=== PATIENT | male | born 1990 | race Caucasian/White ===

== ENCOUNTER 2018-06-10 07:13 | Emergency (ER) | payer OTHER ==
--- NOTE | 2018-06-10 08:42 | RADIOLOGY REPORT (SQ) ---
EXAM DESCRIPTION: SHOULDER RIGHT 2 OR MORE VIEWS COMPLETED DATE/TIME: 06/10/2018 8:23 am REASON FOR STUDY: pain COMPARISON: None. NUMBER OF VIEWS: Three views. TECHNIQUE: Internal rotation, external rotation, and Y view images acquired of the right shoulder. LIMITATIONS: None. FINDINGS: MINERALIZATION: Normal. BONES: No acute fracture or dislocation. No worrisome bone lesions. JOINTS: No dislocation. VISUALIZED LUNGS AND RIBS: No pneumothorax. No rib fracture. SOFT TISSUES: No radiopaque foreign body. OTHER: No other significant finding. IMPRESSION: No fracture or dislocation of the right shoulder. Joint spaces are well preserved. TECHNICAL DOCUMENTATION: JOB ID: [id number] [employer]- All Rights Reserved Reading location - IP/workstation name: [email or web address]
--- NOTE | 2018-06-10 08:52 | ER Document Report ---
ED General - General Chief Complaint: Shoulder Pain Stated Complaint: SHOULDER PAIN Time Seen by Provider: 06/10/18 07:44 Primary Care Provider: PERI KOCH MD [ACTIVE STAFF] - Follow up as needed (call today for appointment) TRAVEL OUTSIDE OF THE [place] IN LAST 30 DAYS: No - HPI Patient complains to provider of: Right shoulder pain Notes: Patient coming in for evaluation of right shoulder pain ongoing for approximately 1 week. Patient denies any specific injury to the right shoulder. Patient states his difficulty lifting his arm up away from his body. Patient denies fever chills nausea vomiting diarrhea denies any surgical past history. Patient denies any numbness or tingling. - Related Data Allergies/Adverse Reactions: amoxicillin Allergy (Mild, Verified 06/10/18 07:50) Generalized rash Past Medical History - Social History Smoking Status: Current Some Day Smoker Family History: Reviewed & Not Pertinent Patient has suicidal ideation: No Patient has homicidal ideation: No Pulmonary Medical History: Denies: Hx Asthma Renal/ Medical History: Denies: Hx Peritoneal Dialysis Psychiatric Medical History: Reports: Hx Anxiety Review of Systems - Review of Systems Constitutional: No symptoms reported EENT: No symptoms reported Cardiovascular: No symptoms reported Respiratory: No symptoms reported Gastrointestinal: No symptoms reported Genitourinary: No symptoms reported Male Genitourinary: No symptoms reported Musculoskeletal: Other - Right shoulder pain Skin: No symptoms reported Hematologic/Lymphatic: No symptoms reported Neurological/Psychological: No symptoms reported -: Yes All other systems reviewed and negative Physical Exam - Vital signs Vitals: Temp Pulse Resp BP Pulse Ox 98.1 F 50 L 14 135/61 H 100 06/10/18 07:18 06/10/18 07:18 06/10/18 07:18 06/10/18 07:18 06/10/18 07:18 Interpretation: Normal - General General appearance: Appears well, Alert - HEENT Head: Normocephalic, Atraumatic Eyes: Normal Pupils: PERRL - Respiratory Respiratory status: No respiratory distress Chest status: Nontender Breath sounds: Normal Chest palpation: Normal - Cardiovascular Rhythm: Regular Heart sounds: Normal auscultation Murmur: No - Abdominal Inspection: Normal Distension: No distension Bowel sounds: Normal Tenderness: Nontender Organomegaly: No organomegaly - Back Back: Normal, Nontender - Extremities General upper extremity: Normal color, Normal temperature, Other - Left arm unaffected. Patient with tenderness to palpation of the dorsum of the deltoid muscle along the rotator cuff patient tenderness to palpation along the supraspinatus area of the shoulder as well no tenderness to the acromium or AC joint no tenderness to the clavicle decreased range of motion due to pain patient has decreased ability to AB duct his arm above 90 degrees patient has painful range of motion this is performed passively General lower extremity: Normal inspection, Nontender, Normal color, Normal ROM, Normal temperature, Normal weight bearing. No: Sathya's sign - Neurological Neuro grossly intact: Yes Cognition: Normal Orientation: AAOx4 [place] Coma Scale Eye Opening: Spontaneous Harjeet Coma Scale Verbal: Oriented [place] Coma Scale Motor: Obeys Commands [place] Coma Scale Total: 15 Speech: Normal Motor strength normal: LUE, RUE, LLE, RLE Sensory: Normal - Psychological Associated symptoms: Normal affect, Normal mood - Skin Skin Temperature: Warm Skin Moisture: Dry Skin Color: Normal Course - Re-evaluation Re-evalutation: 06/10/18 14:01 X-rays negative no clear etiology more likely soft tissue injury recommend patient follow-up orthopedics for possible MRI at this time patient will be given pain medication and referral information. - Vital Signs Vital signs: Temp Pulse Resp BP Pulse Ox 97.7 F 51 L 16 124/84 100 06/10/18 09:16 06/10/18 09:16 06/10/18 09:16 06/10/18 09:16 06/10/18 09:16 Discharge - Discharge Clinical Impression: Shoulder pain Qualifiers: Chronicity: acute Laterality: right Qualified Code(s): M25.511 - Pain in right shoulder Condition: Good Disposition: HOME, SELF-CARE Instructions: Ice Massage ([facility]), Exercise Program for the Shoulder ([facility]), Shoulder Injury ([facility]), Warm Packs ([facility]) Additional Instructions: Your x-ray does not show any signs of fracture subluxation or dislocation of your shoulder. Do believe your shoulder injury is due from a ligamentous or soft tissue injury. To confirm that she will need an MRI. MRI will need to be performed as outpatient. I recommend she follow-up with your primary care provider please take the pain medication as prescribed for severe pain Ultram. Would recommend Tylenol Motrin for your pain. He may continue with ice packs warm packs to help out with pain control. Prescriptions: Ibuprofen [Motrin 600 mg Tablet] 600 mg PO Q8HP PRN #21 tablet PRN Reason: Tramadol HCl [Ultram 50 mg Tablet] 50 mg PO ASDIR PRN #20 tablet PRN Reason: Forms: Return to Work Referrals: PERI KOCH MD [ACTIVE STAFF] - Follow up as needed (call today for appointment)
[2018-06-10] MEDS ORDERED: TRAMADOL HCL 50 MG TABLET PO ONE (08:57)
[2018-06-10 09:17] VITALS: BP 124/84
== END 2018-06-10 09:18 | disposition home or self-care (01) ==
LOC: ER 07:13
DX: M25.511 Pain in right shoulder (principal); F17.200 Nicotine dependence, unspecified, uncomplicated; Z88.0 Allergy status to penicillin
CPT/HCPCS: 99283

== ENCOUNTER 2019-01-02 00:22 | Emergency (ER) | payer OTHER ==
[2019-01-02] MEDS ORDERED: LIDOCAINE 0.5%/EPINEPHRINE INJ 50 ML VIAL INJ ONE (01:06)
[2019-01-02] MEDS ORDERED: DIPH/PERTUSS(ACELL)/TETANUS VAC/PF 0.5 ML SYR (>=10YO) IM ONE (01:06)
--- NOTE | 2019-01-02 01:33 | RADIOLOGY REPORT (SQ) ---
EXAM DESCRIPTION: XR HAND 3 OR MORE VIEWS COMPLETED DATE/TME: 01/02/2019 00:00 CLINICAL HISTORY: 28 years ,Male punched a wall; pain COMPARISON: None. TECHNIQUE: RIGHT hand, Three view FINDINGS: No acute fractures or dislocations are identified. No osseous destructive lesions. No radiopaque foreign object noted. IMPRESSION: No acute fracture or dislocation is identified.
--- NOTE | 2019-01-02 02:14 | ER Document Report ---
ED Hand/Wrist Injury - General Chief Complaint: Hand Injury Stated Complaint: RIGHT HAND INJURY Time Seen by Provider: 01/02/19 01:04 Primary Care Provider: BEL,CHAZ [Primary Care Provider] - Follow up as needed Notes: Patient is a otherwise healthy 28-year-old male presents to the emergency department after punching a tub with his right hand. States he was angry after an argument with a friend. Is denying any suicidal homicidal ideations. He sustained a laceration to the right hand. Patient is unsure when his last tetanus immunization was. Patient is declining any pain medication at this time. TRAVEL OUTSIDE OF THE [place] IN LAST 30 DAYS: No - Related Data Allergies/Adverse Reactions: amoxicillin Allergy (Mild, Verified 06/10/18 07:50) Generalized rash Home Medications: Sarms Past Medical History - General Information source: Patient - Social History Smoking Status: Current Every Day Smoker Chew tobacco use (# tins/day): No Frequency of alcohol use: Occasional Drug Abuse: None Family History: Reviewed & Not Pertinent Patient has suicidal ideation: No Patient has homicidal ideation: No Pulmonary Medical History: Denies: Hx Asthma Renal/ Medical History: Denies: Hx Peritoneal Dialysis Psychiatric Medical History: Reports: Hx Anxiety Review of Systems - Review of Systems Constitutional: denies: No symptoms reported EENT: No symptoms reported Cardiovascular: No symptoms reported Respiratory: No symptoms reported Gastrointestinal: No symptoms reported Genitourinary: No symptoms reported Male Genitourinary: No symptoms reported Musculoskeletal: See HPI Skin: See HPI Hematologic/Lymphatic: No symptoms reported Neurological/Psychological: No symptoms reported Physical Exam - Vital signs Vitals: Temp Pulse Resp BP Pulse Ox 97.9 F 55 L 18 123/79 99 01/02/19 00:27 01/02/19 00:27 01/02/19 00:27 01/02/19 00:27 01/02/19 00:27 - Notes Notes: GENERAL: Alert, interacts well. No acute distress. HEAD: Normocephalic, atraumatic. EYES: Pupils equal, round, and reactive to light. Extraocular movements intact. ENT: Oral mucosa moist, tongue midline. NECK: Full range of motion. Supple. Trachea midline. LUNGS: Clear to auscultation bilaterally, no wheezes, rales, or rhonchi. No respiratory distress. HEART: Regular rate and rhythm. No murmur ABDOMEN: Soft, non-tender. Non-distended. Bowel sounds present in all 4 quadra nts. EXTREMITIES: Moves all 4 extremities spontaneously. No edema, normal radial and dorsalis pedis pulses bilaterally. No cyanosis. 5 out of 5 strength noted all 4 extremities. Full range of motion right wrist, patient can flex and extend all 5 fingers on the right hand. Patient can adduct and abduct all 5 fingers in the right hand against resistance. BACK: no cervical, thoracic, lumbar midline tenderness. No saddle anesthesia, normal distal neurovascular exam. NEUROLOGICAL: Alert and oriented x3. Normal speech. cranial nerves II through XII grossly intact PSYCH: Normal affect, normal mood. SKIN: Warm, dry, normal turgor. Laceration noted between right index finger and middle finger near MCP joint. Multiple other small abrasions noted knuckles of right hand and right middle and index finger. Course - Re-evaluation Re-evalutation: 01/02/19 02:20 Hand X-Ray 01/02/19 00:00 IMPRESSION: No acute fracture or dislocation is identified. Tetanus immunization updated. Patient continues to decline pain management. Laceration repaired, see procedure note. Patient tolerated well. Patient cleared for discharge. - Vital Signs Vital signs: Temp Pulse Resp BP Pulse Ox 97.9 F 55 L 18 123/79 99 01/02/19 00:27 01/02/19 00:27 01/02/19 00:27 01/02/19 00:27 01/02/19 00:27 Procedures - Laceration/Wound Repair Right hand Wound length (cm): 3 Wound's Depth, Shape: Superficial, Linear Laceration pre-procedure: Sterile PPE donned, Betadine prep applied, Sterile drapes applied, Shur-Clens applied Anesthetic type: 1% Lidocaine w/epi Volume Anesthetic (mLs): 2 Wound explored: Clean Irrigated w/ Saline (mLs): 500 Wound Repaired With: Sutures Suture Size/Type: 4:0, Prolene Number of Sutures: 3 Post-procedure wound care: Sterile dressing applied Post-procedure NV exam normal: Yes Complications: No Hands back picture: 1 - Laceration Discharge - Discharge Clinical Impression: Laceration Injury of right hand Qualifiers: Encounter type: initial encounter Qualified Code(s): S69.91XA - Unspecified injury of right wrist, hand and finger(s), initial encounter Condition: Stable Disposition: HOME, SELF-CARE Instructions: Antibiotic Ointment Protection ([facility]), Laceration Care ([facility]), Tetanus Immunization Given ([facility]) Additional Instructions: As we discussed you have been seen and treated in the emergency department for an injury to your right hand. Your x-rays revealed no signs of broken bones. You should follow-up with your primary care provider in the next 12 to 24 hours. Your sutures should be removed in the next 10 to 14 days. Should you see any signs of infection please immediately return to the emergency department. Please also return to the emergency department for any other concerns. Referrals: [facility] [Primary Care Provider] - Follow up as needed
[2019-01-02 02:24] VITALS: BP 115/85
== END 2019-01-02 02:41 | disposition home or self-care (01) ==
LOC: ER 00:22
DX: S61.411A Laceration without foreign body of right hand, initial encounter (principal); S60.410A Abrasion of right index finger, initial encounter; S60.412A Abrasion of right middle finger, initial encounter; S60.511A Abrasion of right hand, initial encounter; W22.09XA Striking against other stationary object, initial encounter; F17.200 Nicotine dependence, unspecified, uncomplicated; Z88.0 Allergy status to penicillin; Z23 Encounter for immunization
CPT/HCPCS: 12002; 99283; 90471; 73130; 90715; J3490